=== PATIENT | female | born 1995 ===

== ENCOUNTER 2024-06-14 16:55 | Emergency (ER) | payer MEDICAID ==
[2024-06-14] MEDS: Amoxicillin/Clavulanate K 875-125 MG Tab PO ONE (17:28)
[2024-06-14] MEDS: Ketorolac 30 MG/ML SDV IM ONE (17:28)
== END 2024-06-14 18:18 | disposition home or self-care (01) ==
LOC: JD.ED 16:55
DX: K02.9 Dental caries, unspecified (principal); Z79.899 Other long term (current) drug therapy
CPT/HCPCS: 96372; 99282; A9270; J1885